=== PATIENT | female | born 1960 | race Hispanic/Latino ===

== ENCOUNTER 2018-05-01 12:45 | Emergency (ER) | payer MEDICARE ==
[2018-05-01] MEDS ORDERED: MOTRIN PO ONE (13:56)
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
[2018-05-01] MEDS ORDERED: NACL 0.9% 1000 ML 1,000 ML IV ONE (14:07)
[2018-05-01] MEDS ORDERED: BENTYL IM ONE (14:07)
[2018-05-01] MEDS ORDERED: PEPCID IV ONE (14:07)
--- NOTE | 2018-05-01 14:09 | Emergency Department Report ---
Blank Doc - Documentation Documentation: Patient is a 58-year-old female who is presenting with diarrhea for approximately 2 weeks. Patient's has some mild right upper quadrant discomfort and is convinced that something from the liver. Patient has a history of overusing Percocet and is in a treatment plan currently. Patient states that she is withdrawing from Percocet which she was taking the last 10 years approximately 6 pills daily. Patient was ever was in shelter. Patient states that she still feels very jittery has had diarrhea which is watery for the past 2 weeks. Patient is denying any vomiting. Brief physical exam patient has normal bowel sounds there is some mild discomfort in the right upper quadrant on palpation otherwise patient is rocking back and forth and does appear somewhat nervous. Patient will be sent for treatment room for IV fluids we'll also check labs including LFTs patient be reassessed.
[2018-05-01 14:44] LABS: Basophils # (Auto) 0.1 K/mm3 (0.0-0.1); Basophils % (Auto) 1.1 % (0.0-1.8); Eosinophils # (Auto) 0.2 K/mm3 (0.0-0.4); Eosinophils % (Auto) 1.8 % (0.0-4.3); Hematocrit 42.6 % (30.3-42.9); Hemoglobin 14.2 gm/dl (10.1-14.3); Lymphocytes # (Auto) 1.5 K/mm3 (1.2-5.4); Lymphocytes % (Auto) 17.5 % (13.4-35.0); Mean Corpuscular HGB Conc 33 % (30-34); Mean Corpuscular Hemoglobin 27 pg (28-32); Mean Corpuscular Volume 82 fl (79-97); Monocytes # (Auto) 0.8 K/mm3 (0.0-0.8); Monocytes % (Auto) 9.5 % (0.0-7.3); Platelet Count 367 K/mm3 (140-440); Red Blood Count 5.18 M/mm3 (3.65-5.03); Red Cell Distribution Width 18.4 % (13.2-15.2)
[2018-05-01 15:15] LABS: Bacteria,Urine 1+ /HPF (Negative); Bilirubin,Urine NEG (Negative); Blood,Urine NEG (Negative); Color,Urine Yellow (Yellow); Mucus,Urine FEW /HPF; Urobilinogen,Urine < 2.0 mg/dL (<2.0)
[2018-05-01 15:21] LABS: Alanine Aminotransferase 19 units/L (7-56); Albumin 4.5 g/dL (3.9-5); BUN/Creatinine Ratio 24; Blood Urea Nitrogen 12 mg/dL (7-17); Calcium 9.9 mg/dL (8.4-10.2); Hemolysis Index 61
[2018-05-01 15:24] LABS: Amphetamine Screen,Urine PRESUMPTIVE NEGATIVE; Cannabinoid Screen,Urine PRESUMPTIVE NEGATIVE; Cocaine Screen,Urine PRESUMPTIVE NEGATIVE; Methadone Screen,Urine PRESUMPTIVE NEGATIVE; Opiate Screen,Urine PRESUMPTIVE NEGATIVE
[2018-05-01 15:39] LABS: Benzodiazepines Screen,Urine PRESUMPTIVE POSITIVE
--- NOTE | 2018-05-01 16:16 | Emergency Department Report ---
ED General Adult HPI - General Chief complaint: Medical Clearance Stated complaint: WITH DRAWLS/LIVER PAIN Time Seen by Provider: 05/01/18 13:56 Source: patient, EMS Mode of arrival: Ambulatory Limitations: No Limitations - History of Present Illness Initial comments: This is a 58-year-old female nontoxic, well nourished in appearance, no acute signs of distress presents to the ED with c/o of tremors and abdominal discomfort 3 weeks. Patient denies any vomiting. Patient stated she stopped taking Percocet 3 weeks ago and is going through withdrawal. Patient stated she is in [facility] for [facility]. Patient currtently in the ED denies any abdominal pain and stated has subsided. Patient denies chest pain, short of breath, fever, chills, headache, stiff neck, numbness or tingling. Patient denies any diarrhea or constipation. Patient denies any vaginal bleeding or discharge. Patient denies any recent travels. Patient denies any allergies or PMH. PAtient stated last time did any drugs was 3 weeks ago. -: week(s) (3) Severity scale (0 -10): 0 Improves with: none Worsens with: none Associated Symptoms: denies other symptoms. denies: confusion, chest pain, cough, diaphoresis, fever/chills, headaches, loss of appetite, malaise, nausea/ vomiting, rash, seizure, shortness of breath, syncope, weakness Treatments Prior to Arrival: none - Related Data Previous Rx's Medication Instructions Recorded Last Taken Type Ibuprofen [Motrin] 600 mg PO Q8H PRN #30 tablet 05/01/18 Unknown Rx Ondansetron [Zofran Odt] 4 mg PO Q8HR PRN #20 tab.rapdis 05/01/18 Unknown Rx ED Review of Systems ROS: Stated complaint: WITH DRAWLS/LIVER PAIN Other details as noted in HPI Constitutional: denies: chills, fever Eyes: denies: eye pain, eye discharge, vision change ENT: denies: ear pain, throat pain Respiratory: denies: cough, shortness of breath, wheezing Cardiovascular: denies: chest pain, palpitations Endocrine: no symptoms reported Gastrointestinal: denies: abdominal pain, nausea, diarrhea Genitourinary: denies: urgency, dysuria, discharge Musculoskeletal: denies: back pain, joint swelling, arthralgia Skin: denies: rash, lesions Neurological: denies: headache, weakness, paresthesias Psychiatric: denies: anxiety, depression Hematological/Lymphatic: denies: easy bleeding, easy bruising ED Past Medical Hx - Past Medical History Hx Hypertension: Yes Hx Congestive Heart Failure: Yes Additional medical history: sciatica, hypokalemia, - Surgical History Additional Surgical History: hysterectomy - Social History Smoking Status: Current Every Day Smoker - Medications Home Medications: Home Medications Medication Instructions Recorded Confirmed Last Taken Type Ibuprofen [Motrin] 600 mg PO Q8H PRN #30 tablet 05/01/18 Unknown Rx Ondansetron [Zofran Odt] 4 mg PO Q8HR PRN #20 tab.rapdis 05/01/18 Unknown Rx ED Physical Exam - General Limitations: No Limitations General appearance: alert, in no apparent distress - Head Head exam: Present: atraumatic, normocephalic - Eye Eye exam: Present: normal appearance Pupils: Present: normal accommodation - ENT ENT exam: Present: normal exam, mucous membranes moist - Neck Neck exam: Present: normal inspection, full ROM. Absent: tenderness, meningismus, lymphadenopathy - Respiratory Respiratory exam: Present: normal lung sounds bilaterally. Absent: respiratory distress, wheezes, rales, rhonchi, stridor, chest wall tenderness, accessory muscle use, decreased breath sounds, prolonged expiratory - Cardiovascular Cardiovascular Exam: Present: regular rate, normal rhythm, normal heart sounds. Absent: irregular rhythm, systolic murmur, diastolic murmur, rubs, gallop - GI/Abdominal GI/Abdominal exam: Present: soft, normal bowel sounds. Absent: distended, tenderness, guarding, rebound, rigid, diminished bowel sounds - Extremities Exam Extremities exam: Present: normal inspection, full ROM, normal capillary refill. Absent: tenderness, joint swelling - Back Exam Back exam: Present: normal inspection, full ROM. Absent: tenderness, CVA tenderness (R), CVA tenderness (L), muscle spasm, paraspinal tenderness, vertebral tenderness, rash noted - Neurological Exam Neurological exam: Present: alert, oriented X3, normal gait - Psychiatric Psychiatric exam: Present: normal affect, normal mood - Skin Skin exam: Present: warm, dry, intact, normal color. Absent: rash ED Course Vital Signs 05/01/18 12:56 Temperature 98.4 F Pulse Rate 99 H Respiratory 20 Rate Blood Pressure 131/88 O2 Sat by Pulse 95 Oximetry - Reevaluation(s) Reevaluation #1: 05/01/18 16:18 Patient is speaking in full sentences with no signs of distress noted. - Consultations Consultation #1: 05/01/18 16:18 Patient has been consulted with Flora Chan about patient history, physical exam, and labs and examined and screened patient and agrees to ED plan of care and discharge plan of care. ED Medical Decision Making - Lab Data Result diagrams: 05/01/18 14:33 05/01/18 14:33 - Medical Decision Making This is a 58-year-old female that presents with tremors. Patient is stable and was examined by me and Dr. Gil. There is no abdominal tenderness. Negative signs of symptoms of appendicitis. Labs obtained. UA obtained. Positive for drug panel abuse. Vital signs are stable prior to discharge. PAtient received 1L normal saline and treatment in the ED which patient stated symptoms has resovled and subsided. A by mouth challenge has been obtained and patient tolerated well with no nausea vomiting. Patient was notified of strict precatuions of appendictis symptoms and to return to the ED if symptoms occurs as soon as possible. Patient was also instructed to Follow-up with a primary care doctor in 3-5 days or if symptoms worsen and continue return to emergency room as soon as possible. At time of discharge, the patient does not seem toxic or ill in appearance. No acute signs of distress noted. Patient agrees to discharge treatment plan of care. No further questions noted by the patient. Critical care attestation.: If time is entered above; I have spent that time in minutes in the direct care of this critically ill patient, excluding procedure time. ED Disposition Clinical Impression: Tremors of nervous system Disposition: DC-01 TO HOME OR SELFCARE Is pt being admited?: No Does the pt Need Aspirin: No Condition: Stable Instructions: Ondansetron (Injection), Ibuprofen (By mouth) Additional Instructions: Follow-up with a primary care doctor in 3-5 days or if symptoms worsen and continue return to emergency room as soon as possible. Prescriptions: Ibuprofen [Motrin] 600 mg PO Q8H PRN #30 tablet PRN Reason: Pain Ondansetron [Zofran Odt] 4 mg PO Q8HR PRN #20 tab.rapdis PRN Reason: Nausea Referrals: PRIMARY CARE, [Primary Care Provider] - 3-5 Days KRYSTAL TENORIO MD [Staff Physician] - 3-5 Days [facility] [Outside] - 3-5 Days [facility] [Outside] - 3-5 Days Forms: Work/School Release Form(ED)
[2018-05-01 16:43] VITALS: BP 119/78
== END 2018-05-01 16:42 | disposition home or self-care (01) ==
LOC: ED 12:45
DX: G25.2 Other specified forms of tremor (principal); I11.0 Hypertensive heart disease with heart failure; E87.6 Hypokalemia; F17.200 Nicotine dependence, unspecified, uncomplicated; Z90.710 Acquired absence of both cervix and uterus
CPT/HCPCS: 36415; 80053; 80307; 81001; 85025; 96361; 96372; 96374; 99283; J0500; J7030

== ENCOUNTER 2018-06-18 15:08 | Inpatient (IN) | payer MEDICARE ==
[2018-06-18] MEDS ORDERED: ATROVENT IH ONE ×2 (15:39→15:58)
[2018-06-18] MEDS ORDERED: PROVENTIL IH ONE ×2 (15:40→15:58)
[2018-06-18] MEDS ORDERED: SOLU-Medrol IV ONE (15:58)
[2018-06-18] MEDS ORDERED: TYLENOL ONE (16:11)
[2018-06-18] MEDS ORDERED: TYLENOL PO ONE ×2 (16:13→16:15)
[2018-06-18 16:40] LABS: Basophils # (Auto) 0.1 K/mm3 (0.0-0.1); Basophils % (Auto) 0.7 % (0.0-1.8); Eosinophils # (Auto) 0.1 K/mm3 (0.0-0.4); Eosinophils % (Auto) 0.6 % (0.0-4.3); Hematocrit 40.9 % (30.3-42.9); Hemoglobin 13.5 gm/dl (10.1-14.3); Lymphocytes # (Auto) 0.9 K/mm3 (1.2-5.4); Lymphocytes % (Auto) 8.6 % (13.4-35.0); Mean Corpuscular HGB Conc 33 % (30-34); Mean Corpuscular Hemoglobin 28 pg (28-32); Mean Corpuscular Volume 84 fl (79-97); Monocytes # (Auto) 0.7 K/mm3 (0.0-0.8); Monocytes % (Auto) 6.7 % (0.0-7.3); Platelet Count 245 K/mm3 (140-440); Red Blood Count 4.87 M/mm3 (3.65-5.03); Red Cell Distribution Width 18.2 % (13.2-15.2)
--- NOTE | 2018-06-18 16:49 | XRay Report ---
FINAL REPORT EXAM: XR CHEST ROUTINE 2V HISTORY: Shortness of breath TECHNIQUE: Single, portable chest x-ray. PRIORS: None. FINDINGS: Cardiac and mediastinal silhouette within normal limits. Lungs are normally expanded, with probable prominent and sclerotic right 1st rib and incidentally noted. No significant vascular congestion. No focal consolidation or apparent pneumothorax. Probable old fracture deformity in right humeral neck. Small, sclerotic focus in left humeral head may represent bone island. IMPRESSION: 1. No acute findings.
[2018-06-18] MEDS ORDERED: MAGNESIUM SULFATE 2GM/50ML 2 GM/50 ML BAG IV ONE (16:59)
[2018-06-18 17:04] LABS: BUN/Creatinine Ratio 28; Blood Urea Nitrogen 17 mg/dL (7-17); Calcium 9.5 mg/dL (8.4-10.2); Hemolysis Index 35
--- NOTE | 2018-06-18 18:03 | Emergency Department Report ---
ED Shortness of Breath HPI - General Chief Complaint: Dyspnea/Respdistress Stated Complaint: OMID Time Seen by Provider: 06/18/18 15:47 Source: patient, EMS Mode of arrival: Stretcher Limitations: Other - History of Present Illness Initial Comments: 58-year-old female with history of COPD presents with difficulty breathing. Patient reports onset of shortness of breath on yesterday. Patient arrived via EMS, none no treatment given. O2 sats in the 80s. Denies being on home O2. Patient reports nonproductive cough, denies fever MD Complaint: shortness of breath -: days(s) (1) Severity: moderate Consistency: constant Improves With: nothing Worsens With: exertion Known History Of: COPD Associated Symptoms: cough Treatments Prior to Arrival: none - Related Data Home Oxygen Therapy: No Previous Rx's Medication Instructions Recorded Last Taken Type Ibuprofen [Motrin] 600 mg PO Q8H PRN #30 tablet 05/01/18 Unknown Rx Ondansetron [Zofran Odt] 4 mg PO Q8HR PRN #20 tab.rapdis 05/01/18 Unknown Rx Allergies Allergy/AdvReac Type Severity Reaction Status Date / Time Penicillins Allergy Unknown Verified 06/18/18 15:15 ED Review of Systems ROS: Stated complaint: OMID Other details as noted in HPI Comment: All other systems reviewed and negative Constitutional: denies: chills, fever Respiratory: cough, shortness of breath Cardiovascular: denies: chest pain Musculoskeletal: other (denies leg pain or swelling) ED Past Medical Hx - Past Medical History Previous Medical History?: Yes Hx Hypertension: Yes Hx Congestive Heart Failure: Yes Hx COPD: Yes Additional medical history: sciatica, hypokalemia, - Surgical History Additional Surgical History: hysterectomy - Social History Smoking Status: Current Every Day Smoker Substance Use Type: None - Medications Home Medications: Home Medications Medication Instructions Recorded Confirmed Last Taken Type Ibuprofen [Motrin] 600 mg PO Q8H PRN #30 tablet 05/01/18 Unknown Rx Ondansetron [Zofran Odt] 4 mg PO Q8HR PRN #20 tab.rapdis 05/01/18 Unknown Rx ED Physical Exam - General Limitations: Other General appearance: alert - Head Head exam: Present: atraumatic, normocephalic - Eye Eye exam: Present: normal appearance - ENT ENT exam: Present: mucous membranes moist - Neck Neck exam: Present: normal inspection - Respiratory Respiratory exam: Present: respiratory distress (moderate), wheezes (bilaterally ), other (tachypnea present) - Cardiovascular Cardiovascular Exam: Present: regular rate, normal rhythm - GI/Abdominal GI/Abdominal exam: Present: soft. Absent: tenderness - Extremities Exam Extremities exam: Present: normal inspection. Absent: pedal edema, calf tenderness - Neurological Exam Neurological exam: Present: alert, oriented X3 - Psychiatric Psychiatric exam: Present: normal affect, normal mood - Skin Skin exam: Present: warm, dry, intact, normal color ED Course Vital Signs 06/18/18 06/18/18 06/18/18 15:47 15:50 16:00 Temperature Pulse Rate 108 H 97 H Pulse Rate [ 100 H Anterior Bilateral Bases ] Respiratory 23 24 20 Rate Respiratory 24 Rate [Anterior Bilateral Bases ] Blood Pressure 133/87 Blood Pressure [Left] O2 Sat by Pulse 94 Oximetry 06/18/18 06/18/18 06/18/18 16:01 16:15 16:31 Temperature 98.4 F Pulse Rate 98 H 96 H 93 H Pulse Rate [ Anterior Bilateral Bases ] Respiratory 24 33 H 17 Rate Respiratory Rate [Anterior Bilateral Bases ] Blood Pressure 133/87 133/87 Blood Pressure 119/88 [Left] O2 Sat by Pulse 96 94 95 Oximetry 06/18/18 06/18/18 06/18/18 16:45 17:00 17:15 Temperature Pulse Rate 93 H 94 H 96 H Pulse Rate [ Anterior Bilateral Bases ] Respiratory 25 H 25 H 38 H Rate Respiratory Rate [Anterior Bilateral Bases ] Blood Pressure 133/87 136/86 136/86 Blood Pressure [Left] O2 Sat by Pulse 90 93 96 Oximetry 06/18/18 06/18/18 06/18/18 17:31 17:42 17:45 Temperature Pulse Rate 94 H 94 H Pulse Rate [ 88 Anterior Bilateral Bases ] Respiratory 39 H 32 H Rate Respiratory 20 Rate [Anterior Bilateral Bases ] Blood Pressure 136/86 136/86 Blood Pressure [Left] O2 Sat by Pulse 96 96 Oximetry 06/18/18 06/18/18 18:00 18:15 Temperature Pulse Rate 95 H 97 H Pulse Rate [ Anterior Bilateral Bases ] Respiratory 33 H 26 H Rate Respiratory Rate [Anterior Bilateral Bases ] Blood Pressure 130/68 130/68 Blood Pressure [Left] O2 Sat by Pulse 94 89 Oximetry ED Medical Decision Making - Lab Data Result diagrams: 06/18/18 16:21 06/18/18 16:21 - EKG Data -: EKG Interpreted by Me EKG shows normal: sinus rhythm, axis, intervals, QRS complexes, ST-T waves - EKG Data Interpretation: no acute changes - Radiology Data Radiology results: report reviewed, image reviewed FINAL REPORT EXAM: XR CHEST ROUTINE 2V HISTORY: Shortness of breath TECHNIQUE: Single, portable chest x-ray. PRIORS: None. FINDINGS: Cardiac and mediastinal silhouette within normal limits. Lungs are normally expanded, with probable prominent and sclerotic right 1st rib and incidentally noted. No significant vascular congestion. No focal consolidation or apparent pneumothorax. Probable old fracture deformity in right humeral neck. Small, sclerotic focus in left humeral head may represent bone island. IMPRESSION: 1. No acute findings. Transcribed By: [facility] Dictated By: REYNOLD KATZ MD Electronically Authenticated By: REYNOLD KATZ MD Signed Date/Time: 06/18/18 6438 - Medical Decision Making 58-year-old female with COPD exacerbation. She reports that she was previously on home O2. However, after admission to [place] and transfer to a personal fdc, patient has not been on O2 for a while now. Respirations improved with neb treatment, however patient's Os sat is 88% on 3 L. ABG shows PO2 of 47. Patient switched to 50% Ventimask. Labs, EKG, chest x-ray normal. Dr. Palencia, agrees to admit the patient. - Differential Diagnosis COPD, pneumonia, pulm edema Critical Care Time: Yes Critical care time in (mins) excluding proc time.: 35 Critical care attestation.: If time is entered above; I have spent that time in minutes in the direct care of this critically ill patient, excluding procedure time. Critical Care Time: 35 minutes ED Disposition Clinical Impression: COPD with acute exacerbation, Hypoxia Disposition: OP ADMIT IP TO THIS HOSP Is pt being admited?: Yes Condition: Stable Instructions: Chronic Obstructive Pulmonary Disease (ED) Referrals: PRIMARY CARE, [Primary Care Provider] - 3-5 Days Time of Disposition: 18:28
--- NOTE | 2018-06-18 21:13 | History and Physical Report ---
History of Present Illness Date of examination: 06/18/18 Date of admission: 06/18/18 Chief complaint: CC [place] SOB for 1 day History of present illness: History of Present Illness: 58 y/o female with PMH of COPD HTN HLD PN and ZAID presents with increasing SOB since yesterday.Mainly wheezing.No fever or chills.Cough productive of mucoid sputum.No exacerbating or relieving factors.O2 sats were in low 80's on Arrival.No recent travel.No pain. Past Medical History: Previous Medical History?: Yes Hx Hypertension: Yes Hx Congestive Heart Failure: Yes Hx COPD: Yes Additional medical history: sciatica, hypokalemia, Surgical History Additional Surgical History: hysterectomy History Smoking Status: Current Every Day Smoker Substance Use Type: None Family History Htn - Medications Home Medications: Home Medications Medication Instructions Recorded Confirmed Last Taken Type Ibuprofen [Motrin] 600 mg PO Q8H PRN #30 tablet 05/01/18 Unknown Rx Ondansetron [Zofran Odt] 4 mg PO Q8HR PRN #20 tab.rapdis 05/01/18 Unknown Rx Medications and Allergies Allergies Allergy/AdvReac Type Severity Reaction Status Date / Time Penicillins Allergy Unknown Verified 06/18/18 15:15 Home Medications Medication Instructions Recorded Confirmed Last Taken Type AtorvaSTATin [Lipitor] 20 mg PO QHS 06/18/18 06/18/18 Unknown History Budesonide/Formoterol Fumarate 2 puff IH BID 06/18/18 06/18/18 Unknown History [Symbicort 160-4.5 Mcg Inhaler] Gabapentin [Neurontin] 300 mg PO QDAY 06/18/18 06/18/18 Unknown History Mirtazapine 15 mg PO QHS 06/18/18 06/18/18 Unknown History Oxycodone HCl/Acetaminophen 1 tab PO Q6H PRN 06/18/18 06/18/18 Unknown History [Percocet 10/325 mg] amLODIPine [Norvasc] 10 mg PO DAILY 06/18/18 06/18/18 Unknown History clonazePAM [Clonazepam] 1 mg PO BID 06/18/18 06/18/18 Unknown History hydrOXYzine PAMOATE [Vistaril] 50 mg PO TID 06/18/18 06/18/18 Unknown History Review of Systems All systems: negative Constitutional: no weight loss, no weight gain, no fever, no chills, no sweats, no night sweats Ears, nose, mouth and throat: no hoarseness, no sore throat, no swelling in mouth, no swelling in throat, no odynophagia Breasts: deferred Cardiovascular: shortness of breath, dyspnea on exertion, no chest pain, no orthopnea, no palpitations, no rapid/irregular heart beat, no edema, no syncope , no lightheadedness Respiratory: cough, cough with sputum, shortness of breath, dyspnea on exertion , congestion, wheezing Gastrointestinal: no abdominal pain, no nausea, no vomiting, no diarrhea, no constipation, no change in bowel habits, no hematemesis, no coffee ground emesis Genitourinary Female: no dysuria, no urinary frequency, no urgency Menstruation: ammenorrhea Rectal: no pain Musculoskeletal: no neck stiffness, no neck pain, no shooting arm pain, no arm numbness/tingling, no low back pain, no shooting leg pain, no leg numbness/ tingling, no redness of joints Integumentary: no rash, no pruritis, no redness, no sores, no wounds, no jaundice, no boils, no blisters Neurological: no seizures, no syncope Psychiatric: anxiety, no memory loss, no change in sleep habits, no sleep disturbances, no insomnia, no hypersomnia, no change in appetite, no change in libido Endocrine: no cold intolerance, no heat intolerance, no polyphagia, no excessive thirst, no polydipsia, no polyuria Hematologic/Lymphatic: no easy bruising, no easy bleeding Allergic/Immunologic: wheezing, no urticaria, no allergic rhinitis Exam - Constitutional Vitals: Temp Pulse Resp BP Pulse Ox 98.7 F 99 H 22 128/75 95 06/18/18 19:22 06/18/18 19:22 06/18/18 19:22 06/18/18 19:22 06/18/18 19:22 General appearance: Present: mild distress, well-nourished - EENT Eyes: Present: PERRL ENT: hearing intact, clear oral mucosa - Neck Neck: Present: supple, normal ROM - Respiratory Respiratory effort: normal Respiratory: bilateral: diminished, rhonchi, wheezing - Cardiovascular Heart rate: 90 Rhythm: regular Heart Sounds: Present: S1 & S2. Absent: rub, click - Extremities Extremities: no ischemia, pulses intact, pulses symmetrical, No edema Peripheral Pulses: within normal limits - Abdominal General gastrointestinal: Present: soft, non-tender, non-distended, normal bowel sounds Female genitourinary: Present: normal - Integumentary Integumentary: Present: clear, warm, dry - Musculoskeletal Musculoskeletal: gait normal, strength equal bilaterally - Psychiatric Psychiatric: appropriate mood/affect, intact judgment & insight - Neurologic Neurologic: CNII-XII intact, moves all extremities - Allied Health Allied health notes reviewed: nursing, case management Results - Labs CBC & Chem 7: 06/18/18 16:21 06/18/18 16:21 Labs: Laboratory Last Values WBC 10.5 K/mm3 (4.5-11.0) 06/18/18 16:21 RBC 4.87 M/mm3 (3.65-5.03) 06/18/18 16:21 Hgb 13.5 gm/dl (10.1-14.3) 06/18/18 16:21 Hct 40.9 % (30.3-42.9) 06/18/18 16:21 MCV 84 fl (79-97) 06/18/18 16:21 MCH 28 pg (28-32) 06/18/18 16:21 MCHC 33 % (30-34) 06/18/18 16:21 RDW 18.2 % (13.2-15.2) H 06/18/18 16:21 Plt Count 245 K/mm3 (140-440) 06/18/18 16:21 Lymph % (Auto) 8.6 % (13.4-35.0) L 06/18/18 16:21 [place] % (Auto) 6.7 % (0.0-7.3) 06/18/18 16:21 Eos % (Auto) 0.6 % (0.0-4.3) 06/18/18 16:21 Baso % (Auto) 0.7 % (0.0-1.8) 06/18/18 16:21 Lymph # 0.9 K/mm3 (1.2-5.4) L 06/18/18 16:21 [place] # 0.7 K/mm3 (0.0-0.8) 06/18/18 16:21 Eos # 0.1 K/mm3 (0.0-0.4) 06/18/18 16:21 Baso # 0.1 K/mm3 (0.0-0.1) 06/18/18 16:21 Seg Neutrophils % 83.4 % (40.0-70.0) H 06/18/18 16:21 Seg Neutrophils # 8.7 K/mm3 (1.8-7.7) H 06/18/18 16:21 POC ABG pH 7.423 (7.35-7.45) 06/18/18 18:23 POC ABG pCO2 37.0 (35-45) 06/18/18 18:23 POC ABG pO2 47 (80-105) L 06/18/18 18:23 POC ABG HCO3 24.2 06/18/18 18:23 POC ABG Total CO2 25 06/18/18 18:23 POC ABG O2 Sat 84 06/18/18 18:23 POC ABG Base Excess 0 06/18/18 18:23 FiO2 32 % 06/18/18 18:23 Sodium 139 mmol/L (137-145) 06/18/18 16:21 Potassium 4.2 mmol/L (3.6-5.0) 06/18/18 16:21 Chloride 101.4 mmol/L (98-107) 06/18/18 16:21 Carbon Dioxide 22 mmol/L (22-30) 06/18/18 16:21 Anion Gap 20 mmol/L 06/18/18 16:21 BUN 17 mg/dL (7-17) 06/18/18 16:21 Creatinine 0.6 mg/dL (0.7-1.2) L 06/18/18 16:21 Estimated GFR > 60 ml/min 06/18/18 16:21 BUN/Creatinine Ratio 28 % 06/18/18 16:21 Glucose 112 mg/dL (65-100) H 06/18/18 16:21 Calcium 9.5 mg/dL (8.4-10.2) 06/18/18 16:21 Troponin T < 0.010 ng/mL (0.00-0.029) 06/18/18 16:21 NT-Pro-B Natriuret Pep 178.8 pg/mL (0-900) 06/18/18 16:21 Short CBC 09/30/18 Range/Units 16:21 WBC 10.5 (4.5-11.0) K/mm3 Hgb 13.5 (10.1-14.3) gm/dl Hct 40.9 (30.3-42.9) % Plt Count 245 (140-440) K/mm3 BMP 06/18/18 16:21 Sodium 139 Potassium 4.2 Chloride 101.4 Carbon Dioxide 22 BUN 17 Creatinine 0.6 L Glucose 112 H Calcium 9.5 Cardiac Enzymes 06/18/18 Range/Units 16:21 Troponin T < 0.010 (0.00-0.029) ng/mL - Imaging and Cardiology EKG: report reviewed Chest x-ray: report reviewed Imaging and Cardiology: CXR FINDINGS: Cardiac and mediastinal silhouette within normal limits. Lungs are normally expanded, with probable prominent and sclerotic right 1st rib and incidentally noted. No significant vascular congestion. No focal consolidation or apparent pneumothorax. Probable old fracture deformity in right humeral neck. Small, sclerotic focus in left humeral head may represent bone island. IMPRESSION: 1. No acute findings Assessment and Plan Advance Directives: Yes (Full code) VTE prophylaxis?: Chemical Plan of care discussed with patient/family: Yes - Patient Problems (1) Acute respiratory failure with hypoxia Current Visit: Yes Status: Acute Plan to address problem: Sec to CoPD IV Solumedrol Duonebs and Antibiotics BIPAP if necessary Intubation if necessary (2) COPD with acute exacerbation Current Visit: Yes Status: Acute Plan to address problem: IV Solumedrol Duonebs and IV Antibiotics BIPAP if necessary Intubation if necessary (3) HTN (hypertension) Current Visit: Yes Status: Chronic Qualifiers: Hypertension type: essential hypertension Qualified Code(s): I10 - Essential (primary) hypertension Plan to address problem: Cont antihypertensives (4) HLD (hyperlipidemia) Current Visit: Yes Status: Chronic Qualifiers: Hyperlipidemia type: mixed hyperlipidemia Qualified Code(s): E78.2 - Mixed hyperlipidemia Plan to address problem: Cont Statins (5) ZAID (generalized anxiety disorder) Current Visit: Yes Status: Chronic Plan to address problem: COnt Clonazepam (6) Peripheral neuropathy Current Visit: Yes Status: Chronic Qualifiers: Peripheral neuropathy type: polyneuropathy, unspecified Qualified Code(s): G62.9 - Polyneuropathy, unspecified Plan to address problem: COnt Gabapentin (7) DVT prophylaxis Current Visit: Yes Status: Acute Plan to address problem: On Lovenox and GI prophylaxis
[2018-06-18] MEDS ORDERED: SODIUM CHLORIDE FLUSH SYRINGE 10 ML IV PRN (21:14)
[2018-06-18] MEDS ORDERED: TYLENOL PO PRN (21:14)
[2018-06-18] MEDS ORDERED: ZOFRAN ODT PO PRN (21:14)
[2018-06-18] MEDS ORDERED: ZOFRAN IV PRN (21:14)
[2018-06-18] MEDS ORDERED: NACL 0.9% 1000 ML 1,000 ML IV SCH (22:00)
[2018-06-18] MEDS ORDERED: MOTRIN PO ONE ×2 (22:15→22:19)
[2018-06-18] MEDS: LEVAQUIN 750MG/150ML 750 MG/150 ML BAG IV SCH (22:27)
[2018-06-18] MEDS: SOLU-Medrol IV SCH (22:27)
[2018-06-18] MEDS: SODIUM CHLORIDE FLUSH SYRINGE 10 ML IV SCH (22:27)
[2018-06-19] MEDS: SOLU-Medrol IV SCH ×3 (05:11→22:56)
[2018-06-19] MEDS: DUONEB *Not for PRN Use IH SCH ×5 (07:34→23:11)
--- NOTE | 2018-06-19 09:58 | Progress Note ---
Assessment and Plan (1) Acute respiratory failure with hypoxia Current Visit: Yes Status: Acute Plan to address problem: Sec to CoPD IV Solumedrol Duonebs and Antibiotics BIPAP if necessary Intubation if necessary (2) COPD with acute exacerbation Current Visit: Yes Status: Acute Plan to address problem: IV Solumedrol Duonebs and IV Antibiotics BIPAP if necessary Intubation if necessary (3) HTN (hypertension) Current Visit: Yes Status: Chronic Qualifiers: Hypertension type: essential hypertension Qualified Code(s): I10 - Essential (primary) hypertension Plan to address problem: Cont antihypertensives (4) HLD (hyperlipidemia) Current Visit: Yes Status: Chronic Qualifiers: Hyperlipidemia type: mixed hyperlipidemia Qualified Code(s): E78.2 - Mixed hyperlipidemia Plan to address problem: Cont Statins (5) ZAID (generalized anxiety disorder) Current Visit: Yes Status: Chronic Plan to address problem: COnt Clonazepam (6) Peripheral neuropathy Current Visit: Yes Status: Chronic Qualifiers: Peripheral neuropathy type: polyneuropathy, unspecified Qualified Code(s): G62.9 - Polyneuropathy, unspecified Plan to address problem: COnt Gabapentin (7) DVT prophylaxis Current Visit: Yes Status: Acute Plan to address problem: On Lovenox and GI prophylaxis Subjective Date of service: 06/19/18 Principal diagnosis: acute hypoxemic respiratory failure, COPD exacerbation Interval history: We have a shortness of breath. No fever. Cough. Objective - Exam Narrative Exam: Constitutional: Well-nourished well-developed. In no distress Head: Normocephalic atraumatic Eyes: Pupils are equal round and reactive to light Nose: No enlarged turbinates, no septal deviation. Mouth: Moist mucous membranes. Neck: Supple no thyromegaly. No bruit. No JVD Heart: Regular rate and rhythm, S1-S2 abnormal. No rubs murmurs or gallop Lungs: Decreased breath sounds with wheezing bilaterally no rales or rhonchi Abdomen: Soft, nontender. Bowel sound are present. Extremities: No edema no cyanosis and no clubbing. Neuro: Alert oriented Oriented x3. No focal sensory or motor deficit. Skin: No rashes no hyperemic spots Psychiatry: Euthymic. Calm. - Constitutional Vitals: Vital Signs - 12hr 06/18/18 06/18/18 06/18/18 22:00 22:03 22:10 Temperature Pulse Rate 90 87 85 Pulse Rate [ Anterior Bilateral Bases ] Respiratory 30 H 23 26 H Rate Respiratory Rate [Anterior Bilateral Bases ] Blood Pressure 112/71 112/71 112/71 O2 Sat by Pulse 98 99 97 Oximetry 06/18/18 06/18/18 06/18/18 22:20 22:28 22:31 Temperature Pulse Rate 88 87 Pulse Rate [ Anterior Bilateral Bases ] Respiratory 31 H 20 18 Rate Respiratory Rate [Anterior Bilateral Bases ] Blood Pressure 112/71 O2 Sat by Pulse 93 96 Oximetry 06/18/18 06/18/18 06/19/18 23:06 23:28 02:20 Temperature 98.8 F Pulse Rate 86 Pulse Rate [ Anterior Bilateral Bases ] Respiratory 20 18 20 Rate Respiratory Rate [Anterior Bilateral Bases ] Blood Pressure 130/78 O2 Sat by Pulse 96 96 Oximetry 06/19/18 06/19/18 06/19/18 04:34 07:35 07:43 Temperature 97.7 F Pulse Rate 69 Pulse Rate [ 84 Anterior Bilateral Bases ] Respiratory 18 18 Rate Respiratory 18 Rate [Anterior Bilateral Bases ] Blood Pressure 120/72 O2 Sat by Pulse 99 Oximetry 06/19/18 07:45 Temperature Pulse Rate Pulse Rate [ 85 Anterior Bilateral Bases ] Respiratory Rate Respiratory 18 Rate [Anterior Bilateral Bases ] Blood Pressure O2 Sat by Pulse Oximetry - Labs CBC & Chem 7: 06/18/18 16:21 06/18/18 16:21 Labs: Abnormal lab results 06/18/18 06/18/18 06/18/18 Range/Units 16:21 16:21 18:23 RDW 18.2 H (13.2-15.2) % Lymph % (Auto) 8.6 L (13.4-35.0) % Lymph # 0.9 L (1.2-5.4) K/mm3 Seg Neutrophils % 83.4 H (40.0-70.0) % Seg Neutrophils # 8.7 H (1.8-7.7) K/mm3 POC ABG pO2 47 L (80-105) Creatinine 0.6 L (0.7-1.2) mg/dL Glucose 112 H (65-100) mg/dL
[2018-06-19] MEDS: NORVASC PO SCH (11:13)
[2018-06-19] MEDS: SODIUM CHLORIDE FLUSH SYRINGE 10 ML IV SCH ×2 (11:14→22:56)
[2018-06-19] MEDS ORDERED: AFLURIA QUAD 2018-2019 SYRINGE IM ONE (12:00)
[2018-06-19] MEDS: EFFEXOR PO SCH (12:03)
[2018-06-19] MEDS ORDERED: PERCOCET 5/325 PO PRN (12:43)
[2018-06-19] MEDS: HABITROL TD SCH (14:38)
[2018-06-19] MEDS ORDERED: ACETAMINOPHEN PO PRN (18:40)
[2018-06-19] MEDS ORDERED: OXYCODONE PO PRN (18:40)
[2018-06-19] MEDS ORDERED: ROXICODONE PO PRN (19:51)
[2018-06-19] MEDS ORDERED: OXYCODONE PO SCH (22:00)
[2018-06-19] MEDS ORDERED: ACETAMINOPHEN PO SCH (22:00)
[2018-06-19] MEDS: LEVAQUIN 750MG/150ML 750 MG/150 ML BAG IV SCH (22:56)
[2018-06-19] MEDS: PERCOCET 5/325 PO PRN (22:57)
[2018-06-20] MEDS: SOLU-Medrol IV SCH ×3 (05:48→22:33)
[2018-06-20] MEDS: DUONEB *Not for PRN Use IH SCH ×4 (09:03→19:50)
[2018-06-20] MEDS: NORVASC PO SCH ×2 (10:21→18:00)
[2018-06-20] MEDS: HABITROL TD SCH (10:22)
[2018-06-20] MEDS: SODIUM CHLORIDE FLUSH SYRINGE 10 ML IV SCH ×2 (10:23→22:34)
[2018-06-20] MEDS: EFFEXOR PO SCH (10:24)
[2018-06-20] MEDS: PERCOCET 5/325 PO PRN ×2 (12:32→18:44)
[2018-06-20] MEDS ORDERED: NON-FORMULARY (Oxycodone Hcl/Acetaminophen [Percocet 10/325 Mg] 1 TAB) PO PRN (17:03)
--- NOTE | 2018-06-20 17:03 | Progress Note ---
Assessment and Plan - Patient Problems (1) Acute respiratory failure with hypoxia Current Visit: Yes Status: Acute Plan to address problem: Sec to CoPD IV Solumedrol Duonebs and Antibiotics BIPAP if necessary Intubation if necessary (2) COPD with acute exacerbation Current Visit: Yes Status: Acute Plan to address problem: IV Solumedrol Duonebs and IV Antibiotics BIPAP if necessary Intubation if necessary (3) HTN (hypertension) Current Visit: Yes Status: Chronic Qualifiers: Hypertension type: essential hypertension Qualified Code(s): I10 - Essential (primary) hypertension Plan to address problem: Cont antihypertensives (4) HLD (hyperlipidemia) Current Visit: Yes Status: Chronic Qualifiers: Hyperlipidemia type: mixed hyperlipidemia Qualified Code(s): E78.2 - Mixed hyperlipidemia Plan to address problem: Cont Statins (5) ZAID (generalized anxiety disorder) Current Visit: Yes Status: Chronic Plan to address problem: COnt Clonazepam (6) Peripheral neuropathy Current Visit: Yes Status: Chronic Qualifiers: Peripheral neuropathy type: polyneuropathy, unspecified Qualified Code(s): G62.9 - Polyneuropathy, unspecified Plan to address problem: COnt Gabapentin (7) DVT prophylaxis Current Visit: Yes Status: Acute Plan to address problem: On Lovenox and GI prophylaxis Subjective Date of service: 06/20/18 Principal diagnosis: acute hypoxemic respiratory failure, COPD exacerbation Interval history: Sx better but still wheezing Objective - Constitutional Vitals: Vital Signs - 12hr 06/20/18 06/20/18 06/20/18 05:28 08:00 09:26 Temperature 98.7 F Pulse Rate 74 Pulse Rate [ 75 Anterior Bilateral Bases ] Pulse Rate [ 84 Throughout] Respiratory 20 Rate Respiratory 16 Rate [Anterior Bilateral Bases ] Respiratory 20 Rate [ Throughout] Blood Pressure 95/52 O2 Sat by Pulse 94 98 Oximetry 06/20/18 06/20/18 10:21 13:05 Temperature Pulse Rate Pulse Rate [ 84 Anterior Bilateral Bases ] Pulse Rate [ 80 Throughout] Respiratory Rate Respiratory 18 Rate [Anterior Bilateral Bases ] Respiratory 18 Rate [ Throughout] Blood Pressure 106/63 O2 Sat by Pulse Oximetry General appearance: Present: no acute distress, well-nourished - EENT Eyes: PERRL, EOM intact ENT: hearing intact, clear oral mucosa Ears: bilateral: normal - Neck Neck: supple, normal ROM - Respiratory Respiratory effort: normal Respiratory: bilateral: CTA - Breasts Breasts: normal - Cardiovascular Rhythm: regular Heart Sounds: Present: S1 & S2. Absent: gallop, rub Extremities: pulses intact, No edema, normal color, Full ROM - Gastrointestinal General gastrointestinal: Present: soft, non-tender, non-distended, normal bowel sounds - Genitourinary Female genitourinary: normal - Integumentary Integumentary: clear, warm, dry - Musculoskeletal Musculoskeletal: 1, strength equal bilaterally - Neurologic Neurologic: moves all extremities - Psychiatric Psychiatric: memory intact, appropriate mood/affect, intact judgment & insight - Labs CBC & Chem 7: 06/18/18 16:21 06/18/18 16:21
[2018-06-20] MEDS ORDERED: EFFEXOR 150 MG PO SCH (17:15)
[2018-06-20] MEDS ORDERED: ROXICODONE PO PRN (17:30)
[2018-06-20] MEDS: NEURONTIN PO SCH (18:00)
[2018-06-20] MEDS: PULMICORT IH SCH (19:51)
[2018-06-20] MEDS: BROVANA NEBU IH SCH (20:26)
[2018-06-20] MEDS ORDERED: NON-FORMULARY (Budesonide/Formoterol Fumarate [Symbicort 160-4.5 Mcg Inhaler] 2 PUFF) IH SCH (22:00)
[2018-06-20] MEDS ORDERED: NON-FORMULARY (Clonazepam [Clonazepam] 1 MG) PO SCH (22:00)
[2018-06-20] MEDS ORDERED: REMERON PO SCH (22:00)
[2018-06-20] MEDS ORDERED: LEVAQUIN PO SCH (22:00)
[2018-06-20] MEDS: VISTARIL PO SCH (22:33)
[2018-06-21] MEDS: SOLU-Medrol IV SCH ×2 (05:52→13:30)
[2018-06-21] MEDS: VISTARIL PO SCH ×2 (09:44→13:29)
[2018-06-21] MEDS: NEURONTIN PO SCH (09:44)
[2018-06-21] MEDS: EFFEXOR PO SCH (09:44)
[2018-06-21] MEDS: NORVASC PO SCH (09:45)
[2018-06-21] MEDS: HABITROL TD SCH (09:45)
[2018-06-21 09:46] VITALS: BP 145/93
[2018-06-21] MEDS: PERCOCET 5/325 PO PRN (09:51)
[2018-06-21] MEDS: PULMICORT IH SCH (12:55)
[2018-06-21] MEDS: BROVANA NEBU IH SCH (12:55)
[2018-06-21] MEDS: DUONEB *Not for PRN Use IH SCH ×3 (12:55→17:50)
[2018-06-21] MEDS: SODIUM CHLORIDE FLUSH SYRINGE 10 ML IV SCH (13:02)
--- NOTE | 2018-06-21 16:52 | Discharge Summary ---
Providers - Providers Date of Admission: 06/18/18 21:14 Date of discharge: 06/21/18 Attending physician: JT WONG Primary care physician: PRINCIPAL CLERK TYPIST Hospitalization Condition: Stable Hospital course: - Patient Problems (1) Acute respiratory failure with hypoxia Current Visit: Yes Status: Acute Plan to address problem: Improved (2) COPD with acute exacerbation Current Visit: Yes Status: Acute Plan to address problem: Improved (3) HTN (hypertension) Current Visit: Yes Status: Chronic Qualifiers: Hypertension type: essential hypertension Qualified Code(s): I10 - Essential (primary) hypertension Plan to address problem: Cont antihypertensives (4) HLD (hyperlipidemia) Current Visit: Yes Status: Chronic Qualifiers: Hyperlipidemia type: mixed hyperlipidemia Qualified Code(s): E78.2 - Mixed hyperlipidemia Plan to address problem: Cont Statins (5) ZAID (generalized anxiety disorder) Current Visit: Yes Status: Chronic Plan to address problem: COnt Clonazepam (6) Peripheral neuropathy Current Visit: Yes Status: Chronic Qualifiers: Peripheral neuropathy type: polyneuropathy, unspecified Qualified Code(s): G62.9 - Polyneuropathy, unspecified Plan to address problem: COnt Gabapentin Disposition: DC-01 TO HOME OR SELFCARE Core Measure Documentation - Palliative Care Palliative Care/ Comfort Measures: Not Applicable - Core Measures Any of the following diagnoses?: none Exam - Constitutional Vitals: Temp Pulse Resp BP Pulse Ox 98.1 F 85 18 145/93 95 06/21/18 06:17 06/21/18 13:23 06/21/18 13:23 06/21/18 09:45 06/21/18 12:55 General appearance: Present: no acute distress, well-nourished - EENT Eyes: Present: PERRL ENT: hearing intact, clear oral mucosa - Neck Neck: Present: supple, normal ROM - Respiratory Respiratory effort: normal Respiratory: bilateral: CTA - Cardiovascular Heart rate: 78 Rhythm: regular Heart Sounds: Present: S1 & S2. Absent: rub, click - Extremities Extremities: no ischemia, pulses intact, pulses symmetrical, No edema Peripheral Pulses: within normal limits - Abdominal General gastrointestinal: Present: soft, non-tender, non-distended, normal bowel sounds Female genitourinary: Present: normal - Rectal Rectal Exam: deferred - Integumentary Integumentary: Present: clear, warm, dry - Musculoskeletal Musculoskeletal: gait normal, strength equal bilaterally - Psychiatric Psychiatric: appropriate mood/affect, intact judgment & insight - Neurologic Neurologic: CNII-XII intact, moves all extremities - Allied Health Allied health notes reviewed: nursing, case management Plan Activity: no restrictions Diet: low salt Follow up with: PRIMARY CARE, [Primary Care Provider] - 3-5 Days
[2018-06-26] MEDS ORDERED: HABITROL TD SCH (10:00)
== END 2018-06-21 19:44 | disposition home or self-care (01) | DRG 189 ==
LOC: ED 15:08 → 3A 21:14
PROVIDERS: ADMIT Internal Medicine; ATTEND Internal Medicine
PROC: 4A033R1 Measurement of Arterial Saturation, Peripheral, Percutaneous Approach (ICD-10-PCS; principal; 2018-06-18)
DX: J96.01 Acute respiratory failure with hypoxia (principal); J44.1 Chronic obstructive pulmonary disease with (acute) exacerbation; I11.0 Hypertensive heart disease with heart failure; I50.9 Heart failure, unspecified; F17.200 Nicotine dependence, unspecified, uncomplicated; F41.1 Generalized anxiety disorder; G62.9 Polyneuropathy, unspecified; E78.2 Mixed hyperlipidemia; Z82.49 Family history of ischemic heart disease and other diseases of the circulatory system; Z90.710 Acquired absence of both cervix and uterus; Z88.0 Allergy status to penicillin
CPT/HCPCS: 36415; 71046; 80048; 82803; 83880; 84484; 85025; 87116; 90686; 93005; 93010; 94640; 94760; 96365; 96367; 96375; 99406; A9270-GY; J1956; J2405; J2930; J3475; J7030; Q0177